=== PATIENT | female | born 1985 | race Caucasian/White ===

== ENCOUNTER → 2019-05-20 | Outpatient (CLI) | payer OTHER ==
[2019-05-20 15:48] LABS: EOS # 0.1 (0.04-0.40); EOS % 0.9 % (1.0-5.0); HEMATOCRIT 39.7 % (37.0-47.0); HEMOGLOBIN 12.6 g/dL (12.5-16.0); LYMPH# 3.1 (1.50-4.00); MEAN CELL VOLUME 83 fl (78-100); MEAN CORPUSCULAR HEMOGLOBIN 26 pg (27-31); MEAN CORPUSCULAR HGB CONC 32 g/dL (33-37); MEAN PLATELET VOLUME 9.2 fl (7.4-10.4); MONO # 0.9 (0.20-0.80); NEU # 5.2 (1.40-6.50); PLATELET COUNT 259 K/mm3 (130-400); RED BLOOD COUNT 4.79 M/mm3 (4.10-5.30); RED CELL DISTRIBUTION WIDTH 13.9 % (11.5-14.5); WHITE BLOOD COUNT 9.3 K/mm3 (4.8-10.8)
[2019-05-20 15:59] LABS: ALBUMIN 4.3 g/dL (3.5-5.0); POTASSIUM 3.7 mmol/L (3.5-5.1)
[2019-05-20 16:00] LABS: CALCIUM 9.6 mg/dL (8.3-10.5)
[2019-05-20 16:01] LABS: TOTAL PROTEIN 7.3 g/dL (6.4-8.3)
[2019-05-20 16:03] LABS: TOTAL BILIRUBIN 0.3 mg/dL (0.2-1.2)
== END ==
LOC: LAB 15:37
PROVIDERS: Family Medicine
DX: Z00.00 Encounter for general adult medical examination without abnormal findings (principal); E78.5 Hyperlipidemia, unspecified; E55.9 Vitamin D deficiency, unspecified

== ENCOUNTER → 2020-06-22 | Outpatient (CLI) | payer OTHER ==
[2020-06-22 10:19] LABS: EOS % 0.5 % (1.0-5.0); HEMATOCRIT 41.2 % (37.0-47.0); HEMOGLOBIN 12.9 g/dL (12.5-16.0); LYMPH# 2.2 (1.50-4.00); MEAN CELL VOLUME 83 fl (78-100); MEAN CORPUSCULAR HEMOGLOBIN 26 pg (27-31); MEAN CORPUSCULAR HGB CONC 31 g/dL (33-37); MEAN PLATELET VOLUME 9.6 fl (7.4-10.4); MONO # 0.7 (0.20-0.80); NEU # 4.9 (1.40-6.50); PLATELET COUNT 267 K/mm3 (130-400); RED BLOOD COUNT 4.96 M/mm3 (4.10-5.30); WHITE BLOOD COUNT 7.9 K/mm3 (4.8-10.8)
[2020-06-22 10:23] LABS: ALBUMIN 4.4 g/dL (3.5-5.0); POTASSIUM 4.4 mmol/L (3.5-5.1)
[2020-06-22 10:24] LABS: CALCIUM 9.2 mg/dL (8.3-10.5)
[2020-06-22 10:25] LABS: TOTAL PROTEIN 7.8 g/dL (6.4-8.3)
[2020-06-22 10:27] LABS: TOTAL BILIRUBIN 0.8 mg/dL (0.2-1.2)
[2020-06-22 12:16] LABS: ERYTHROCYTE SEDIMENTATION RATE 6 mm/hr (0-20)
[2020-06-28 11:34] LABS: ANA SCREEN with REFLEX Negative (Negative)
== END ==
LOC: LAB 09:34
PROVIDERS: Family Medicine
DX: Z00.00 Encounter for general adult medical examination without abnormal findings (principal); E78.5 Hyperlipidemia, unspecified; I73.00 Raynaud's syndrome without gangrene

== ENCOUNTER → 2021-07-31 | Outpatient (CLI) | payer OTHER ==
[2021-07-31 10:12] LABS: BASO # 0.02 K/mm3 (0.02-0.10); EOS # 0.08 K/mm3 (0.04-0.40); EOS % 1.2 % (1.0-5.0); HEMATOCRIT 42.7 % (37.0-47.0); HEMOGLOBIN 13.4 g/dL (12.5-16.0); LYMPH# 2.07 K/mm3 (1.50-4.00); MEAN CELL VOLUME 84 fl (78-100); MEAN CORPUSCULAR HEMOGLOBIN 26 pg (27-31); MEAN CORPUSCULAR HGB CONC 31 g/dL (33-37); MEAN PLATELET VOLUME 9.2 fl (7.4-10.4); MONO # 0.43 K/mm3 (0.20-0.80); NEU # 4.24 K/mm3 (1.40-6.50); PLATELET COUNT 272 K/mm3 (130-400); RED BLOOD COUNT 5.09 M/mm3 (4.10-5.30); RED CELL DISTRIBUTION WIDTH 13.5 % (11.5-14.5); WHITE BLOOD COUNT 6.9 K/mm3 (4.8-10.8)
[2021-07-31 12:01] LABS: POTASSIUM 4.4 mmol/L (3.5-5.1); SODIUM 138 mmol/L (136-145)
[2021-07-31 12:03] LABS: CALCIUM 9.4 mg/dL (8.3-10.5)
[2021-07-31 12:04] LABS: GLUCOSE 93 mg/dL (65-105); TOTAL PROTEIN 7.4 g/dL (6.4-8.3)
[2021-07-31 12:05] LABS: CARBON DIOXIDE 22 mmol/L (22-29)
[2021-07-31 12:06] LABS: TOTAL BILIRUBIN 0.4 mg/dL (0.2-1.2)
[2021-07-31 12:09] LABS: AST-SGOT 24 U/L (5-34)
[2021-07-31 12:11] LABS: ALT/SGPT 24 U/L (0-55)
[2021-07-31 12:26] LABS: TROPONIN-I < 0.030 ng/mL (<0.030)
[2021-08-01 11:01] LABS: ANA SCREEN with REFLEX Negative (Negative)
== END ==
LOC: LAB 09:54
PROVIDERS: Family Medicine
DX: Z00.00 Encounter for general adult medical examination without abnormal findings (principal); E78.5 Hyperlipidemia, unspecified; F41.1 Generalized anxiety disorder; N92.1 Excessive and frequent menstruation with irregular cycle; E66.9 Obesity, unspecified; R06.09 Other forms of dyspnea; R53.83 Other fatigue

== ENCOUNTER → 2023-03-12 | Outpatient (CLI) | payer OTHER | LOC: LAB 10:12 | DX: M79.672 Pain in left foot (principal) ==

== ENCOUNTER → 2023-08-31 | Outpatient (CLI) | payer OTHER ==
[2023-08-31 12:51] LABS: BASO # 0.03 K/mm3 (0.02-0.10); EOS # 0.09 K/mm3 (0.04-0.40); EOS % 1.1 % (1.0-5.0); HEMATOCRIT 40.8 % (37.0-47.0); HEMOGLOBIN 13.1 g/dL (12.5-16.0); LYMPH# 2.25 K/mm3 (1.50-4.00); MEAN CELL VOLUME 83 fl (78-100); MEAN CORPUSCULAR HEMOGLOBIN 27 pg (27-31); MEAN CORPUSCULAR HGB CONC 32 g/dL (33-37); MEAN PLATELET VOLUME 9.3 fl (7.4-10.4); MONO # 0.55 K/mm3 (0.20-0.80); NEU # 4.94 K/mm3 (1.40-6.50); PLATELET COUNT 281 K/mm3 (130-400); RED BLOOD COUNT 4.94 M/mm3 (4.10-5.30); WHITE BLOOD COUNT 7.9 K/mm3 (4.8-10.8)
[2023-08-31 12:53] LABS: ALBUMIN 4.3 g/dL (3.5-5.0); SODIUM 138 mmol/L (136-145)
[2023-08-31 12:54] LABS: CALCIUM 9.4 mg/dL (8.3-10.5)
[2023-08-31 12:55] LABS: TOTAL PROTEIN 7.2 g/dL (6.4-8.3)
[2023-08-31 12:56] LABS: CARBON DIOXIDE 22 mmol/L (22-29); GLUCOSE 95 mg/dL (65-105)
[2023-08-31 12:57] LABS: TOTAL BILIRUBIN 0.5 mg/dL (0.2-1.2)
[2023-08-31 13:01] LABS: AST-SGOT 23 U/L (5-34)
[2023-08-31 13:02] LABS: ALT/SGPT 25 U/L (0-55)
[2023-08-31 23:40] LABS: FOLLICLE STIMULATING HORMONE 10.6 mIU/mL (()); LUTENIZING HORMONE 2.5 mIU/mL (()); PROGESTERONE 0.7 ng/mL (())
[2023-09-01 08:54] LABS: ANA SCREEN with REFLEX Negative (Negative)
== END ==
LOC: LAB 12:36
PROVIDERS: Family Medicine
DX: E78.5 Hyperlipidemia, unspecified (principal); N91.1 Secondary amenorrhea; M35.9 Systemic involvement of connective tissue, unspecified; I10 Essential (primary) hypertension; E03.9 Hypothyroidism, unspecified